=== PATIENT | female | born 2000 | race Caucasian/White ===

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

== ENCOUNTER 2020-10-09 12:26 | Emergency (ER) | payer MEDICAID ==
[~2020-10-09] VITALS: Ht 170.2 cm; Wt 47.5 kg
[2020-10-09 12:37] VITALS: BP 104/65
== END 2020-10-09 13:22 | disposition home or self-care (01) ==
LOC: ED 13:14
DX: H66.002 Acute suppurative otitis media without spontaneous rupture of ear drum, left ear (principal); H60.312 Diffuse otitis externa, left ear
CPT/HCPCS: 99283